=== PATIENT | female | born 1990 | race Two or more races ===

== ENCOUNTER 2017-05-01 09:26 | Emergency (ER) | payer OTHER ==
[~2017-05-01] VITALS: Ht 160 cm; Wt 61.2 kg
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
[2017-05-01] MEDS: HYDROMORPHONE INJ 2 MG/ML DISP.SYRIN IV ONE ×2 (10:15→10:32)
[2017-05-01] MEDS: ONDANSETRON HCL/PF 4 MG/2 ML VIAL IVP ONE (10:15)
[2017-05-01] MEDS ORDERED: ONDANSETRON HCL/PF 4 MG/2 ML VIAL ONE (10:20)
[2017-05-01] MEDS ORDERED: MORPHINE SULFATE INJ 2 MG/ML DISP.SYRIN ONE ×2 (10:22→11:27)
[2017-05-01] MEDS ORDERED: MORPHINE SULFATE INJ 4 MG/ML DISP.SYRIN ONE ×2 (10:23→11:27)
--- NOTE | 2017-05-01 11:28 | NUR ---
CALLED [facility] SPOKE WITH YOLIS, EXPECTING A CALL BACK FROM A [facility]
[2017-05-01] MEDS ORDERED: MORPHINE SULFATE INJ 2 MG/ML DISP.SYRIN IV ONE ×2 (11:30→13:00)
--- NOTE | 2017-05-01 11:50 | NUR ---
VIANA JORDAN CALLED , ON THE PHONE WITH DR WILLARD.
[2017-05-01 12:00] VITALS: BP 128/80
--- NOTE | 2017-05-01 12:22 | NUR ---
[facility] DR SAMUELS BLS [phone]
--- NOTE | 2017-05-01 12:47 | NUR ---
REPORT GIVEN AJ MEDEL FROM [facility] FOR [facility]
[2017-05-01] MEDS ORDERED: ONDANSETRON 4 MG TAB.RAPDIS ONE (13:26)
[2017-05-01] MEDS ORDERED: ONDANSETRON 4 MG TAB.RAPDIS SL ONE (14:00)
== END 2017-05-01 13:23 | disposition short-term general hospital (02) ==
LOC: ER 09:28
DX: S52.501A Unspecified fracture of the lower end of right radius, initial encounter for closed fracture (principal); V43.52XA Car driver injured in collision with other type car in traffic accident, initial encounter; Y93.89 Activity, other specified; Y92.410 Unspecified street and highway as the place of occurrence of the external cause; Y99.8 Other external cause status
CPT/HCPCS: 73110; A4606; J2270; J2405; Q0162; Z7610